=== PATIENT | male | born 1955 | race Caucasian/White ===

== ENCOUNTER 2017-02-07 07:17 | Emergency (ER) | payer OTHER, MEDICAID ==
[~2017-02-07] VITALS: Ht 180.3 cm; Wt 108.9 kg
[~2017-02-07 07:17] MED LIST: ASPI81CH43 PO; INSLANTI; LISI2.5T47 PO; MET25T PO; METF-370
[2017-02-07 09:08] LABS: Basophils # (auto) 0.1 uL; Basophils % (auto) 1.3 % (0.0-2.0); Eosinophils # (auto) 0.1 uL; Eosinophils % (auto) 1.2 % (0.0-7.0); Hematocrit 36.9 % (41.0-53.0); Lymphocytes # (auto) 2.6 uL; Lymphocytes % (auto) 35.6 % (10.0-50.0); Mean Corpuscular Hemoglobin 30.1 pg (28.0-32.0); Mean Corpuscular Hgb Conc. 35.3 g/dL (32.0-36.0); Mean Corpuscular Volume 85.4 fL (80.0-100.0); Mean Platelet Volume 7.6 fL (6.9-10.8); Monocytes # (auto) 0.9 uL; Monocytes % (auto) 12.2 % (0.0-12.0); Neutrophils # (auto) 3.6 uL; Neutrophils % (auto) 49.7 % (37.0-80.0); Nucleated Red Blood Cells % 0.1 %; Platelet Count (auto) 202 10^3/uL (140-450); Red Cell Distribution Width 12.9 % (11.8-14.3); White Blood Cell 7.3 10^3/uL (4.4-10.8)
[2017-02-07 09:28] LABS: Albumin 3.4 g/dL (3.4-5.0); Bilirubin, Total 0.6 mg/dL (0.2-1.0); Calcium 8.1 mg/dL (8.5-10.1); Magnesium 1.9 mg/dL (1.6-2.6); Potassium 4.5 mmol/L (3.5-5.1); Total Protein 6.6 g/dL (6.4-8.2)
[2017-02-07 09:35] LABS: Urine Bilirubin Negative (Negative); Urine Blood Negative /uL (Negative); Urine Color Yellow (Yellow); Urine Glucose Normal (Normal); Urine Ketone Negative (Negative); Urine Nitrite Negative (Negative); Urine RBC <1 /hpf (0 - 3); Urine Squamous Epithelial Cell FEW /hpf (<5); Urine Urobilinogen Normal (Negative); Urine pH 5.5 (5.0-8.0)
[2017-02-07] MEDS: SODIUM CHLORIDE 0.9% 1,000 ML IVB ONE (09:36)
[2017-02-07] MEDS: KETOROLAC TROMETH 30 MG/ML 1ML VIAL IV ONE (09:36)
[2017-02-07] MEDS: PROMETHAZINE HCL 25 MG/ML 1ML IV PRN (12:33)
[2017-02-07] MEDS: NALBUPHINE HCL 10 MG/1ml INJECTION IV ONE (12:33)
[2017-02-07] MEDS: NALBUPHINE HCL 10 MG/1ml INJECTION ONE (12:46)
[2017-02-07 12:49] VITALS: BP 166/67
[2017-02-07] MEDS: OSELTAMIVIR 75 MG CAP PO ONE (13:01)
[2017-02-07] MEDS: SODIUM CHLORIDE 0.9% 1,000 ML IV ONE (13:02)
== END 2017-02-07 15:43 | disposition home or self-care (01) ==
LOC: ER 07:17
DX: E86.0 Dehydration (principal); M35.3 Polymyalgia rheumatica; J10.1 Influenza due to other identified influenza virus with other respiratory manifestations; E87.1 Hypo-osmolality and hyponatremia; E11.9 Type 2 diabetes mellitus without complications; I10 Essential (primary) hypertension; G89.29 Other chronic pain
CPT/HCPCS: 36415; 71020; 74176; 80053; 81001; 82962; 83690; 83735; 84443; 84484; 85025; 87400; 93005; 94761; 96361; 96374; 96375; 99285; J1885; J2300; J2550; J7030

== ENCOUNTER 2019-07-31 11:41 | Inpatient (IN) | payer OTHER, MEDICAID ==
[~2019-07-31] VITALS: Ht 180.3 cm; Wt 108.3 kg
[~2019-07-31 11:41] MED LIST changes: -ASPI81CH43 PO; +CHOL20007 PO; +FURO40TA4 PO; -INSLANTI; +INSLANTI SC; +INSLISPI SC; +LISI-285 PO; -LISI2.5T47 PO; -MET25T PO; -METF-370
[2019-07-31] MEDS ORDERED: SODIUM CHLORIDE 0.9% 500 ML IV ONE (12:24)
[2019-07-31] MEDS ORDERED: ONDANSETRON HCL 4 MG/2 ML VIAL IV ONE (12:30)
[2019-07-31 13:17] LABS: Basophils # (auto) 0.1 10 ^3/uL (0-0.2); Basophils % (auto) 0.8 % (0.0-2.0); Eosinophils # (auto) 0.2 10 ^3/uL (0-0.8); Eosinophils % (auto) 1.7 % (0.0-7.0); Hematocrit 40.8 % (41.0-53.0); Hemoglobin 13.9 g/dL (13.5-17.5); Lymphocytes # (auto) 3.2 10 ^3/uL (0.4-5.4); Lymphocytes % (auto) 33.5 % (10.0-50.0); Mean Corpuscular Hemoglobin 30.6 pg (28.0-32.0); Mean Corpuscular Hgb Conc. 34.2 g/dL (32.0-36.0); Mean Corpuscular Volume 89.7 fL (80.0-100.0); Monocytes # (auto) 0.7 10 ^3/uL (0-1.3); Monocytes % (auto) 7.3 % (0.0-12.0); Neutrophils # (auto) 5.4 10 ^3/uL (1.6-8.6); Neutrophils % (auto) 56.7 % (37.0-80.0); Nucleated Red Blood Cells % 0.1 %; Platelet Count (auto) 255 10^3/uL (140-450); Red Blood Cells 4.55 10^6/uL (4.5-5.90); Red Cell Distribution Width 13.5 % (11.8-14.3); White Blood Cell 9.6 10^3/uL (4.4-10.8)
[2019-07-31 13:32] LABS: Albumin 3.8 g/dL (3.4-5.0); Potassium 4.4 mmol/L (3.5-5.1)
[2019-07-31 13:37] LABS: BUN/Creatinine Ratio 18.7; Bilirubin, Total 0.4 mg/dL (0.2-1.0); Total Protein 7.4 g/dL (6.4-8.2)
[2019-07-31] MEDS ORDERED: MORPHINE SULF INJ 2 MG/ML SYRINGE 1ML IV PRN (15:15)
[2019-07-31] MEDS ORDERED: NITROGLYCERIN 0.4 MG SL TAB SL PRN (15:15)
[2019-07-31] MEDS ORDERED: hydrALAZINE HCL 20 MG/ML VL IV PRN (15:15)
[2019-07-31] MEDS ORDERED: ACETAMINOPHEN 500 MG TAB PO PRN (15:15)
[2019-07-31] MEDS ORDERED: ONDANSETRON HCL 4 MG/2 ML VIAL IV PRN (15:15)
[2019-07-31] MEDS ORDERED: FUROSEMIDE 40 MG/4 ML VIAL IV SCH (15:15)
[2019-07-31] MEDS ORDERED: DEXTROSE (50%) 50ML SYRG IV PRN (15:15)
[2019-07-31] MEDS: HYDROcodone-ACET 5/325MG TAB PO PRN (16:01)
[2019-07-31] MEDS: NITROGLYCERIN 0.2MG/HR TOPICAL PATCH TD SCH (16:10)
[2019-07-31 16:56] LABS: Urine Bacteria NONE SEEN /hpf (None Seen); Urine Blood Negative /uL (Negative); Urine Specific Gravity 1.004 (1.001-1.035); Urine WBC <1 /hpf (0 - 3)
[2019-07-31] MEDS: InsuLIN REG 1unit/0.01ml Soln (100units/ml) SC SCH ×2 (17:00→21:50)
[2019-07-31] MEDS: ACCU-CHEK COMFORT CURVE STRIP VI SCH ×2 (17:28→21:36)
[2019-07-31] MEDS: MORPHINE SULF INJ 2 MG/ML SYRINGE 1ML IV PRN (19:56)
--- NOTE | 2019-07-31 20:09 | NUR ---
Telemetry admit from ER [facility] admitted to Telemetry unit. Patient is A&O X's 4 with no s/s of distress and reports some pain to right foot. Patient recently was just medicated with morphine to help this pain. Patient oriented to JUDE NAVARRO RN primary RN, unit, room, bed, and unit policies regarding patient care and visiting hours. Patient now on continuous telemetry monitoring, tele box #[id number] . Patient encouraged to call if they need something. Bed is in lowest/locked position with side rails up X's 2 and call light is within reach of patient. All questions and concerns addressed, patient verbalized understanding.
[2019-07-31] MEDS: METOPROLOL TARTRATE 25 MG TAB PO SCH (21:35)
[2019-07-31] MEDS: ATORVASTATIN 20 MG TAB PO SCH (21:36)
[2019-07-31 22:00] VITALS: BP 102/47
[2019-08-01 00:44] VITALS: BP 102/47
[2019-08-01] MEDS: HYDROcodone-ACET 5/325MG TAB PO PRN ×2 (03:36→17:41)
--- NOTE | 2019-08-01 04:36 | NUR ---
PAIN REASSESSMENT Patient not c/o any pain at this time. Will continue care.
[2019-08-01 05:00] VITALS: BP 107/66
[2019-08-01] MEDS: FUROSEMIDE 40 MG/4 ML VIAL IV SCH ×2 (06:10→18:50)
[2019-08-01] MEDS: ACCU-CHEK COMFORT CURVE STRIP VI SCH ×4 (06:14→21:50)
[2019-08-01] MEDS: InsuLIN REG 1unit/0.01ml Soln (100units/ml) SC SCH ×4 (06:14→21:46)
[2019-08-01 06:30] LABS: Basophils # (auto) 0.1 10 ^3/uL (0-0.2); Basophils % (auto) 0.9 % (0.0-2.0); Eosinophils # (auto) 0.2 10 ^3/uL (0-0.8); Eosinophils % (auto) 3.1 % (0.0-7.0); Hematocrit 37.1 % (41.0-53.0); Hemoglobin 12.8 g/dL (13.5-17.5); Lymphocytes # (auto) 2.4 10 ^3/uL (0.4-5.4); Lymphocytes % (auto) 34.6 % (10.0-50.0); Mean Corpuscular Hemoglobin 30.6 pg (28.0-32.0); Mean Corpuscular Hgb Conc. 34.4 g/dL (32.0-36.0); Monocytes # (auto) 0.7 10 ^3/uL (0-1.3); Monocytes % (auto) 9.6 % (0.0-12.0); Neutrophils # (auto) 3.6 10 ^3/uL (1.6-8.6); Neutrophils % (auto) 51.8 % (37.0-80.0); Nucleated Red Blood Cells % 0.3 %; Platelet Count (auto) 231 10^3/uL (140-450); Red Blood Cells 4.17 10^6/uL (4.5-5.90); Red Cell Distribution Width 13.2 % (11.8-14.3); White Blood Cell 6.9 10^3/uL (4.4-10.8)
[2019-08-01 06:38] LABS: INR 0.99 (0.9-1.15); Partial Thromboplastin Time 27.9 sec (23.64-32.05)
[2019-08-01 06:42] LABS: BUN/Creatinine Ratio 21.5; Calcium 8.6 mg/dL (8.5-10.1); Potassium 4.2 mmol/L (3.5-5.1)
--- NOTE | 2019-08-01 07:40 | NUR ---
Opening shift note Assumed care from NOC PAIGE reveles. Patient is alert and oriented x4 no s/s of distress noted. Bed is in lowest locked position, side rails up x2, call light within reach. Updated patient on plan of care and patient verbalized understanding. I will continue to monitor q1hr and PRN.
[2019-08-01 09:03] VITALS: BP 113/60
[2019-08-01] MEDS: FAMOTIDINE 20 MG TAB PO SCH (10:00)
[2019-08-01] MEDS: ASPirin-EC 81 mg tab PO SCH (10:52)
[2019-08-01] MEDS: LISINOPRIL 10 MG TAB PO SCH (10:52)
[2019-08-01] MEDS: METOPROLOL TARTRATE 25 MG TAB PO SCH ×2 (10:53→21:49)
[2019-08-01] MEDS: NITROGLYCERIN 0.2MG/HR TOPICAL PATCH TD SCH (10:55)
[2019-08-01] MEDS ORDERED: LISI-707 PO (12:03)
[2019-08-01] MEDS: MORPHINE SULF INJ 2 MG/ML SYRINGE 1ML IV PRN (12:03)
[2019-08-01] MEDS ORDERED: AMLO10TA13 PO (12:03)
[2019-08-01] MEDS ORDERED: ATOR20TA50 PO (12:03)
[2019-08-01] MEDS ORDERED: MET25T PO (12:03)
[2019-08-01 12:50] VITALS: BP 140/69
[2019-08-01 17:10] VITALS: BP 128/74
--- NOTE | 2019-08-01 18:10 | NUR ---
Physician rounding Dr. Rose Titus at bedside. Updated him on plan of care. New orders received, I will follow through.
--- NOTE | 2019-08-01 19:20 | NUR ---
Closing shift note Endorsed care to NOC PAIGE Salomon No s/s of distress noted.
--- NOTE | 2019-08-01 19:30 | NUR ---
OPENING NOTE Received report from day shift RN. Patient is A&O X's 4 with no s/s of distress and reports no pain at this time. Educated patient on POC and to use call light when in need of assistance. Patient verbalized understanding. Educated patient he will not be able to eat or drink anything after midnight in prep for the procedure. Bed is in lowest/locked position with side rails up X's 2 and call light is within reach of patient. Will continue care.
[2019-08-01] MEDS: ATORVASTATIN 20 MG TAB PO SCH (21:49)
[2019-08-01 22:00] VITALS: BP 134/71
--- NOTE | 2019-08-02 | NUR ---
PATIENT NPO Patient aware. fluids and food removed from bedside.
[2019-08-02] MEDS ORDERED: SODIUM CHLORIDE 0.9% 500 ML IV ONE (00:01)
[2019-08-02] MEDS: MORPHINE SULF INJ 2 MG/ML SYRINGE 1ML IV PRN (03:51)
--- NOTE | 2019-08-02 03:57 | NUR ---
CONSENTS NOT SIGNED Patient requesting to sign consents at a later time. Will endorse to day shift RN.
--- NOTE | 2019-08-02 04:21 | NUR ---
PAIN REASSESSMENT Patient is resting with eye closed. No s/s of discomfort is seen. Will continue care.
[2019-08-02 04:54] VITALS: BP 117/56
[2019-08-02 05:56] LABS: Basophils # (auto) 0.1 10 ^3/uL (0-0.2); Basophils % (auto) 0.7 % (0.0-2.0); Eosinophils # (auto) 0.3 10 ^3/uL (0-0.8); Hematocrit 38.4 % (41.0-53.0); Hemoglobin 13.2 g/dL (13.5-17.5); Lymphocytes # (auto) 2.8 10 ^3/uL (0.4-5.4); Lymphocytes % (auto) 33.2 % (10.0-50.0); Mean Corpuscular Hemoglobin 30.4 pg (28.0-32.0); Mean Corpuscular Hgb Conc. 34.4 g/dL (32.0-36.0); Mean Corpuscular Volume 88.4 fL (80.0-100.0); Monocytes # (auto) 0.6 10 ^3/uL (0-1.3); Monocytes % (auto) 7.5 % (0.0-12.0); Neutrophils # (auto) 4.7 10 ^3/uL (1.6-8.6); Neutrophils % (auto) 55.6 % (37.0-80.0); Platelet Count (auto) 240 10^3/uL (140-450); Red Blood Cells 4.34 10^6/uL (4.5-5.90); Red Cell Distribution Width 12.7 % (11.8-14.3); White Blood Cell 8.5 10^3/uL (4.4-10.8)
[2019-08-02 06:14] LABS: INR 0.99 (0.9-1.15)
[2019-08-02] MEDS: FUROSEMIDE 40 MG/4 ML VIAL IV SCH ×2 (06:18→18:00)
[2019-08-02] MEDS: InsuLIN REG 1unit/0.01ml Soln (100units/ml) SC SCH ×4 (06:18→22:44)
[2019-08-02] MEDS: ACCU-CHEK COMFORT CURVE STRIP VI SCH ×4 (06:18→22:07)
[2019-08-02 06:30] LABS: Potassium 3.9 mmol/L (3.5-5.1)
[2019-08-02 06:37] LABS: BUN/Creatinine Ratio 25.8; Calcium 8.9 mg/dL (8.5-10.1)
--- NOTE | 2019-08-02 07:35 | NUR ---
Opening shift note Assumed care of patient from [facility] PAIGE Salomon. Patient is AOx4 no signs and symptoms of distress noted. Bed is in lowest locked position, side rails up x2, call light is within reach. Updated patient on plan of care, patient verbalized that he would like to speak to ROB Coughlin regarding a scheduled procedure today. Patient stated "i want what is wrong with my stomach to be addressed before any procedure." Patient is not agreeing to sign consents. Educated patient about the risk of refusing. Patient verbalized understanding. I will continue to monitor Q1hr and PRN.
--- NOTE | 2019-08-02 08:37 | NUR ---
Paged cardiology Paged BRIDAL GOWN FITTER Felipa Coughlin. Awaiting call back.
[2019-08-02 08:55] VITALS: BP 129/60
[2019-08-02] MEDS: FAMOTIDINE 20 MG TAB PO SCH (10:00)
[2019-08-02] MEDS: HYDROcodone-ACET 5/325MG TAB PO PRN ×2 (10:21→21:56)
[2019-08-02] MEDS: ASPirin-EC 81 mg tab PO SCH (10:21)
[2019-08-02] MEDS: LISINOPRIL 10 MG TAB PO SCH (10:22)
[2019-08-02] MEDS: METOPROLOL TARTRATE 25 MG TAB PO SCH ×2 (10:22→21:56)
[2019-08-02] MEDS: NITROGLYCERIN 0.2MG/HR TOPICAL PATCH TD SCH (10:24)
[2019-08-02 12:58] VITALS: BP 127/59
--- NOTE | 2019-08-02 14:45 | NUR ---
spoke with family Spoke with patients daughter and updated her on plan of care. She verbalized understanding.
--- NOTE | 2019-08-02 15:05 | NUR ---
called medical laboratory technologist Called medical laboratory technologist to inform that patient is verbalizing that he will sign consents to have the procedure done today. Per medical laboratory technologist nurse patient can be brought down now.
--- NOTE | 2019-08-02 15:25 | NUR ---
Patient off unit Patient off unit for procedure.
--- NOTE | 2019-08-02 16:15 | NUR ---
called family Updated patients daughter Veronica about patient being taken down to a procedure. She verbalized understanding.
--- NOTE | 2019-08-02 18:00 | NUR ---
PT transferred to tele floor via bed, portable monitor, and O2. primary RN at bedside. bed in lowest position, call light in reach
--- NOTE | 2019-08-02 18:10 | NUR ---
patient back on unit patient back on unit, no signs and symptoms of distress noted. vitas are 98.1, 18 respiration rate, 97% oxygen on room air, 71bpm, 109/60
--- NOTE | 2019-08-02 18:10 | NUR ---
received report from grass farm laborer Received report from grass farm laborer nurse. Patient did not have procedure done today and will have it done tomorrow morning. patient is aware. Addendum: 08/02/19 at 1814 by LAMIN HEWITT RN correct time is 9677
--- NOTE | 2019-08-02 18:20 | NUR ---
Patient requesting laxative Patient stated "I cant eat until I can take something to help me have a bowel movement." Informed patient that there are currently no orders for a laxative and the attending physician will be notified. Patient verbalized understanding.
--- NOTE | 2019-08-02 18:30 | NUR ---
Called physician Called Dr. Jennifer Ferreira, left a voice message regarding patient status. Awaiting call back.
--- NOTE | 2019-08-02 19:20 | NUR ---
End of shift note Endorsed care to NOC PAIGE Hernadez. No s/s of distress noted.
--- NOTE | 2019-08-02 20:00 | NUR ---
Opening note Patient resting in bed with even and unlabored respirations, no distress noted. Instructed patient on POC, fall precautions and to call for assistance as needed. patient verbalized understanding. Fall precautions in place with call light within reach.
[2019-08-02] MEDS ORDERED: LACTULOSE 20Gm/30ML SOLN PO ONE (21:00)
--- NOTE | 2019-08-02 21:00 | NUR ---
Notified RE: assessment Notified Dr. Rose Ferreira of CP & GI assessment. MD verbalized understanding. MD to place orders.
[2019-08-02] MEDS: ATORVASTATIN 20 MG TAB PO SCH (21:55)
[2019-08-02 22:00] VITALS: BP 123/59
--- NOTE | 2019-08-02 23:10 | NUR ---
Patient resting in bed with eyes closed; respirations even and unlabored, no distress noted. Fall precautions in place with call light within reach.
[2019-08-03] VITALS (8 sets, daily range): BP systolic 99–140; BP diastolic 49–70
--- NOTE | 2019-08-03 03:28 | NUR ---
Patient resting in bed with eyes closed; respirations even and unlabored, no distress noted. Fall precautions in place with call light within reach.
[2019-08-03] MEDS: FUROSEMIDE 40 MG/4 ML VIAL IV SCH (05:54)
[2019-08-03] MEDS: ACCU-CHEK COMFORT CURVE STRIP VI SCH ×4 (06:05→22:37)
[2019-08-03] MEDS: InsuLIN REG 1unit/0.01ml Soln (100units/ml) SC SCH ×4 (06:09→22:42)
--- NOTE | 2019-08-03 06:15 | NUR ---
Closing note Patient resting in bed with eyes closed; respirations even and unlabored, no distress noted. Fall precautions in place with call light within reach.
--- NOTE | 2019-08-03 07:30 | NUR ---
Care endorsed to PAIGE Bagley. Patient resting in bed with even and unlabored respirations, no distress noted. Fall precautions in place with call light within reach.
--- NOTE | 2019-08-03 07:30 | NUR ---
Opening Shift Note Assumed care of patient, awake and alert. No S/S of distress/SOB or pain. Bed in lowest locked position, call light within reach, side rails up x 2. Instructed on POC and to call for assist PRN, will continue to monitor for changes Q1hr and PRN.
[2019-08-03] MEDS: FAMOTIDINE 20 MG TAB PO SCH (10:00)
[2019-08-03] MEDS ORDERED: LACTULOSE 20Gm/30ML SOLN PO SCH (10:00)
[2019-08-03] MEDS: METOPROLOL TARTRATE 25 MG TAB PO SCH ×2 (10:00→22:00)
[2019-08-03] MEDS: NITROGLYCERIN 0.2MG/HR TOPICAL PATCH TD SCH (10:07)
[2019-08-03] MEDS: LISINOPRIL 10 MG TAB PO SCH (10:08)
[2019-08-03] MEDS: ASPirin-EC 81 mg tab PO SCH (10:08)
[2019-08-03] MEDS ORDERED: LACTULOSE 20Gm/30ML SOLN PO PRN (10:45)
--- NOTE | 2019-08-03 11:06 | NUR ---
OFF UNIT TO WATER MANAGER
--- NOTE | 2019-08-03 11:33 | NUR ---
Est energy needs 3222-0744 kcal (16-18 kcal/kg BW 103.1kg) Est protein needs 78-86g (1-1.1g/kg IBW 78 kg) Will reassess prn. Addendum: 08/03/19 at [address] Amended: Links added.
[2019-08-03] MEDS ORDERED: HEPARIN SODIUM (PORCINE) 5000 UNITS/ML 1ML VIAL ONE (12:04)
[2019-08-03] MEDS ORDERED: VERAPAMIL 2.5MG/ML INJ 2ML VIAL IV ONE (12:04)
[2019-08-03] MEDS ORDERED: MIDAZOLAM HCL 1MG/1ML-2 ML VIAL ONE ×2 (12:05→14:10)
[2019-08-03] MEDS ORDERED: fentaNYL CITRATE 100 MCG/2 ML VL ONE ×2 (12:05→14:10)
[2019-08-03] MEDS ORDERED: LIDOCAINE 2%HCL (LOCAL ANESTH.) INJ 20ML MDV ONE (12:05)
[2019-08-03] MEDS ORDERED: IOHEXOL 350 MG/ML 100ML IJ ONE ×3 (12:05→13:52)
[2019-08-03] MEDS ORDERED: SODIUM CHL 0.9% 50 ML ONE ×2 (12:07→13:45)
[2019-08-03] MEDS ORDERED: ANGIOMAX 250 MG VIAL IV ONE ×2 (12:07→13:45)
[2019-08-03] MEDS ORDERED: TICAGRELOR 90 MG TAB ONE (14:08)
[2019-08-03] MEDS ORDERED: ASPirin 325 MG TAB ONE (14:08)
[2019-08-03] MEDS ORDERED: TICA90TA PO (15:32)
[2019-08-03] MEDS ORDERED: MET25T PO (15:32)
[2019-08-03] MEDS ORDERED: ASPI-394 PO (15:32)
[2019-08-03] MEDS ORDERED: ATOR20TA50 PO (15:32)
[2019-08-03] MEDS ORDERED: LISI-648 PO (15:32)
--- NOTE | 2019-08-03 15:51 | NUR ---
PATIENT ARRIVED FROM [facility]. RIGHT GROIN DRESSING CDI AND SOFT TO TOUCH AROUND THE SITE AND COLOR WITHIN NORMAL LIMITS. PATIENTS VITALS ARE STABLE AND PATIENT IS ALERT AND ORIENTED X4 AND PLACED ON 2L OF OXYGEN VIA N/C. NO S/S OF DISTRESS OR SOB AT THIS TIME AND PATIENT DENIES HAVING ANY CHEST PAIN AT THIS TIME. BED IN LOWEST AND LOCKED POSITION WITH SIDE RAILS UP X2 AND CALL LIGHT IN REACH. WILL CONTINUE TO MONITOR.
--- NOTE | 2019-08-03 16:00 | NUR ---
SPOKE TO DR. Rose TINOCO. RN UPDATED DR. TINOCO ON THE PATIENTS STATUS AND PROCEDURE RESULTS. MD AWARE AND PER DR. TINOCO, PATIENT WILL STAY TONIGHT AND THE DISCHARGE WILL BE TOMORROW 08/04/2019.
[2019-08-03] MEDS: HYDROcodone-ACET 5/325MG TAB PO PRN (17:39)
--- NOTE | 2019-08-03 17:40 | NUR ---
PT STATED THAT HE HAS PAIN. PATIENT RATED PAIN AT 8/10. PATIENT STATED, "THE AVRILCO IS FINE FOR NOW". RN EDUCATED PATIENT ON PAIN MANAGEMENT AND THE RISKS AND BENEFITS OF PAIN MEDICATIONS. PATIENT VERBALIZED UNDERSTANDING.
--- NOTE | 2019-08-03 19:20 | NUR ---
Opening Shift Note Assumed care of patient. Patient is awake and alert. No S/S of distress/SOB or pain. Instructed on POC and to call for assist PRN, will continue to monitor for changes Q1hr and PRN. Bed locked in lowest position and bed rails up x3. Call light within reach. Right groin dressing clean, dry and intact.
[2019-08-03] MEDS: ATORVASTATIN 20 MG TAB PO SCH (22:36)
[2019-08-03] MEDS: TICAGRELOR 90 MG TAB PO SCH (22:36)
[2019-08-04] VITALS (7 sets, daily range): BP systolic 100–164; BP diastolic 51–92
[2019-08-04] MEDS: ACCU-CHEK COMFORT CURVE STRIP VI SCH ×4 (06:27→22:15)
[2019-08-04] MEDS: InsuLIN REG 1unit/0.01ml Soln (100units/ml) SC SCH ×4 (06:27→22:17)
[2019-08-04] MEDS: FUROSEMIDE 40 MG/4 ML VIAL IV SCH (09:37)
[2019-08-04] MEDS: POTASSIUM CHL 10 Meq TABLET PO SCH (09:38)
[2019-08-04] MEDS: ASPirin-EC 81 mg tab PO SCH (09:39)
[2019-08-04] MEDS: TICAGRELOR 90 MG TAB PO SCH ×2 (09:39→23:11)
[2019-08-04] MEDS: LISINOPRIL 10 MG TAB PO SCH (09:40)
[2019-08-04] MEDS: METOPROLOL TARTRATE 25 MG TAB PO SCH ×2 (09:40→22:17)
[2019-08-04] MEDS: FAMOTIDINE 20 MG TAB PO SCH (09:40)
[2019-08-04] MEDS: NITROGLYCERIN 0.2MG/HR TOPICAL PATCH TD SCH (10:00)
[2019-08-04] MEDS ORDERED: SODIUM CHLORIDE 0.9% 500 ML IV ONE (12:00)
[2019-08-04] MEDS ORDERED: FUROSEMIDE 20 MG TAB PO ONE ×2 (12:00→22:00)
--- NOTE | 2019-08-04 13:37 | NUR ---
NOTIFIED ROB CONRAD ON PATIENTS PEAKED T-WAVE ON THE TELEMETRY READING. ROB CONRAD AWARE AND NO NEW ORDERS RECEIVED AT THIS TIME. ACCORDING TO ROB CONRAD PATIENT IS OKAY TO BE DISCHARGED.
--- NOTE | 2019-08-04 14:00 | NUR ---
SPOKE TO DR. ANN NEW ORDERS RECEIVED, READ BACK AND VERIFIED. PER DR. ANN PATIENT CAN BE DISCHARGED AFTER HE HAS A BM.
[2019-08-04] MEDS ORDERED: GOLYTELY 4L KIT PO ONE (14:15)
[2019-08-04] MEDS ORDERED: SODIUM CHLORIDE 0.9% 1,000 ML IV SCH (15:15)
--- NOTE | 2019-08-04 15:15 | NUR ---
SPOKE TO DR. Rose TINOCO. NEW ORDERS RECEIVED, READ BACK AND VERIFIED.
--- NOTE | 2019-08-04 18:24 | NUR ---
PATIENT STATED HE HAS A SMALL BOWEL MOVEMENT.
--- NOTE | 2019-08-04 18:25 | NUR ---
Opening Shift Note Assumed care of patient, awake and alert. No S/S of distress/SOB or pain. Bed in lowest locked position, call light within reach, side rails up x 2. Instructed on POC and to call for assist PRN, will continue to monitor for changes Q1hr and PRN. Addendum: 08/04/19 at 1826 by MARIELLE ARMSTRONG RN RN INCORRECT TIME CORRECT TIME 0730
--- NOTE | 2019-08-04 19:10 | NUR ---
SPOKE TO DR. Jennifer TINOCO. RN UPDATED DR. TINOCO ON PATIENT STATUS AND LABS. MD AWARE AND NEW ORDERS RECEIVED READ BACK AND VERIFIED. SEE EMR FOR ORDERS.
--- NOTE | 2019-08-04 19:16 | NUR ---
Opening Shift Note Assumed care of patient. Patient is awake, alert, and oriented X 4. No S/S of respiratory distress. Respirations are regular and non-labored. Patient complaints on pain 6 0f 10. Pain will be addressed per Dr's order. Bed in lowest position, brakes locked, call light within reach, bed rail up x 2. POC discussed with the patient. Patient instructed to call for assistance PRN. Will continue to monitor for changes Q1hr and PRN.
[2019-08-04] MEDS: HYDROcodone-ACET 5/325MG TAB PO PRN (20:17)
[2019-08-04] MEDS: SODIUM CHLORIDE 0.9% 1,000 ML IV SCH (21:25)
[2019-08-04] MEDS: ATORVASTATIN 20 MG TAB PO SCH (22:16)
[2019-08-05] MEDS: SODIUM CHLORIDE 0.9% 1,000 ML IV SCH (03:58)
[2019-08-05 05:00] VITALS: BP 154/49
[2019-08-05] MEDS: ACCU-CHEK COMFORT CURVE STRIP VI SCH ×4 (06:38→22:05)
[2019-08-05] MEDS: InsuLIN REG 1unit/0.01ml Soln (100units/ml) SC SCH ×4 (06:42→22:16)
--- NOTE | 2019-08-05 07:30 | NUR ---
Opening Shift Note Assumed care of patient, awake and alert. No S/S of distress/SOB or pain. Bed in lowest and locked position with side rails up x2 and call light in reach. Instructed on POC and to call for assist PRN, will continue to monitor for changes Q1hr and PRN.
[2019-08-05] MEDS: HYDROcodone-ACET 5/325MG TAB PO PRN ×2 (08:36→20:44)
[2019-08-05 08:54] VITALS: BP 150/71
--- NOTE | 2019-08-05 09:15 | NUR ---
PATIENT STATED THAT HE FEEL SOB AND PAIN IN THE BACK AND LEG. PATIENT STATED "I THINK ITS NEUROLOGICAL". RN INITIATED EKG AND PLACE PATIENT ON 2L OF OXYGEN VIA NC. RN TO NOTIFY .
--- NOTE | 2019-08-05 09:50 | NUR ---
NOTIFIED ROB CONRAD ON THE PATIENT COMPLAINT OF SOB AND EKG INITIATED AND PLACED IN CHART. ROB CONRAD AWARE AND NO NEW ORDERS RECEIVED AT THIS TIME.
[2019-08-05] MEDS: NITROGLYCERIN 0.2MG/HR TOPICAL PATCH TD SCH (10:00)
[2019-08-05] MEDS: FAMOTIDINE 20 MG TAB PO SCH (10:37)
[2019-08-05] MEDS: FUROSEMIDE 40 MG/4 ML VIAL IV SCH (10:37)
[2019-08-05] MEDS: LISINOPRIL 10 MG TAB PO SCH (10:37)
[2019-08-05] MEDS: ASPirin-EC 81 mg tab PO SCH (10:38)
[2019-08-05] MEDS: METOPROLOL TARTRATE 25 MG TAB PO SCH ×2 (10:38→22:07)
[2019-08-05] MEDS: TICAGRELOR 90 MG TAB PO SCH ×2 (10:38→22:06)
[2019-08-05] MEDS: POTASSIUM CHL 10 Meq TABLET PO SCH (10:38)
[2019-08-05 12:45] VITALS: BP 150/64
[2019-08-05 13:07] LABS: Calcium 7.4 mg/dL (8.5-10.1); Potassium 4.3 mmol/L (3.5-5.1)
--- NOTE | 2019-08-05 16:30 | NUR ---
SPOKE TO VEE WITH CASE MANAGEMENT. PER VEE, [facility] HAS REQUESTED PATIENT INFORMATION. RN TO FAX INFORMATION TO [facility], FAX # [phone] AND PHONE NUMBER IS [phone].
[2019-08-05 16:50] VITALS: BP 151/78
[2019-08-05] MEDS ORDERED: POLY33504 PO (16:50)
[2019-08-05] MEDS ORDERED: DOCU-94 PO (16:50)
--- NOTE | 2019-08-05 17:15 | NUR ---
ATTEMPT TO FAX INFORMATION TO [facility]. FAX FAILED MULTIPLE TIMES. RN CALLED [facility] AND SPOKE TO WOJCEICH REGARDING THE INFORMATION. WOJCIECH GAVE A SECONDARY FAX NUMBER. THIS FAX NUMBER ALSO DID NOT COMPLETE THE FAX. ACCORDING TO WOJCIECH THE PATIENT HAS BEEN ACCEPTED TO [facility]. WILL ATTEMPT TO FAX AT A LATER TIME.
--- NOTE | 2019-08-05 18:35 | NUR ---
PAGED DR. TINOCO REGARDING DISCHARGE AND THE HOME HEALTH. AWAITING CALL BACK.
--- NOTE | 2019-08-05 18:39 | NUR ---
ATTEMPT TO FAX THE PATIENT INFORMATION REQUESTED TO THE [facility]. FAX NUMBERS ATTEMPTED ARE [phone] AND [phone].
--- NOTE | 2019-08-05 19:00 | NUR ---
SPOKE TO DR. Bryant TINOCO. PER DR. TINOCO, THE PATIENT IS NOT TO BE DISCHARGED TONIGHT.
[2019-08-05 20:00] VITALS: BP 154/73
[2019-08-05 22:00] VITALS: BP 154/73
[2019-08-05] MEDS: ATORVASTATIN 20 MG TAB PO SCH (22:07)
[2019-08-06 05:00] VITALS: BP 140/84
[2019-08-06] MEDS: METOPROLOL TARTRATE 25 MG TAB PO SCH ×2 (06:38→09:46)
[2019-08-06] MEDS: ACCU-CHEK COMFORT CURVE STRIP VI SCH ×2 (06:39→12:39)
[2019-08-06] MEDS: InsuLIN REG 1unit/0.01ml Soln (100units/ml) SC SCH ×2 (06:43→12:39)
[2019-08-06 07:08] LABS: BUN/Creatinine Ratio 17.3; Calcium 8.1 mg/dL (8.5-10.1); Potassium 3.9 mmol/L (3.5-5.1)
[2019-08-06 09:00] VITALS: BP 146/72
--- NOTE | 2019-08-06 09:30 | NUR ---
SPOKE TO DR. Bryant TINOCO. RN UPDATED DR. Bryant TINOCO ON THE PATIENTS CONDITION. PER DR. Bryant TINOCO THE PATIENT CAN BE DISCHARGED AFTER DR. ANGUIANO CLEARS THE PATIENT. PER DR. Bryant TINOCO, THE HOME HEALTH IS SET UP AND THE PATIENT IS TO BE DISCHARGED REGARDLESS OF THE PAPERWORK UNABLE TO BE FAXED TO [facility].
[2019-08-06] MEDS: POTASSIUM CHL 10 Meq TABLET PO SCH (09:46)
[2019-08-06] MEDS: FUROSEMIDE 40 MG/4 ML VIAL IV SCH (09:46)
[2019-08-06] MEDS: FAMOTIDINE 20 MG TAB PO SCH (09:46)
[2019-08-06] MEDS: ASPirin-EC 81 mg tab PO SCH (09:46)
[2019-08-06] MEDS: LISINOPRIL 10 MG TAB PO SCH (09:47)
[2019-08-06] MEDS: TICAGRELOR 90 MG TAB PO SCH (09:47)
[2019-08-06] MEDS: NITROGLYCERIN 0.2MG/HR TOPICAL PATCH TD SCH (10:00)
--- NOTE | 2019-08-06 10:47 | NUR ---
PAGED DR. ANGUIANO. AWAITING CALL BACK.
--- NOTE | 2019-08-06 10:55 | NUR ---
SPOKE TO DR. ANGUIANO. ACCORDING TO DR. ANGUIANO THE PATIENT IS CLEAR FOR DISCHARGE.
[2019-08-06 11:04] VITALS: BP 146/72
--- NOTE | 2019-08-06 11:26 | NUR ---
SPOKE TO VEE WITH CASE MANAGEMENT AND NOTIFIED VEE THAT THE FAX IS UNABLE TO PROCESS FOR THE PATIENT INFORMATION TO SEND TO [facility]. PER VEE, SHE WILL TRY AGAIN ON WEDNESDAY MORNING AFTER THE PATIENT IS DISCHARGED.
--- NOTE | 2019-08-06 13:20 | NUR ---
Discharge instructions given as ordered. Encourage to follow up with PMD as instructed. All questions and concerns addressed. Patient verbalized understanding. Medication reconciliation form completed and copy given to patient. No Home medications held in Pharmacy. Patient refused vaccines. IV removed with catheter intact, pressure dressing applied. Telemetry unit returned to ICU. Patient taken to vehicle via wheelchair with all personal belongings, accompanied by staff and family member. No distress noted at time of departure.
--- NOTE | 2019-08-07 09:27 | NUR ---
Weekend metal bonding crib attendant-I received a page from nurse Bagley 08/05/19 [id number] letting me know that patient is to discharge home and needs home health safety eval. I called [facility] and spoke with Marshmallow Machine Worker Mahi, she said to fax it to [facility]. I asked nurse Bagley to fax to [facility], provided her with phone number to give to patient. Per Mahi [facility] will see patient within 24-48 hours.
== END 2019-08-06 13:20 | disposition home health service (06) | DRG 246 ==
LOC: ER 11:41 → TELE 11:42 → TELE-WESTW 20:09
PROVIDERS: ADMIT Nurse Practitioner Acute Care; ATTEND Internal Medicine
PROC: 027337Z Dilation of Coronary Artery, Four or More Arteries with Four or More Drug-eluting Intraluminal Devices, Percutaneous Approach (ICD-10-PCS; principal; 2019-08-03)
PROC: X2C0361 Extirpation of Matter from Coronary Artery, One Artery using Orbital Atherectomy Technology, Percutaneous Approach, New Technology Group 1 (ICD-10-PCS; 2019-08-03)
DX: I25.10 Atherosclerotic heart disease of native coronary artery without angina pectoris (principal); N17.0 Acute kidney failure with tubular necrosis; I13.0 Hypertensive heart and chronic kidney disease with heart failure and stage 1 through stage 4 chronic kidney disease, or unspecified chronic kidney disease; I50.32 Chronic diastolic (congestive) heart failure; K59.00 Constipation, unspecified; K80.20 Calculus of gallbladder without cholecystitis without obstruction; R10.9 Unspecified abdominal pain; N18.3 Chronic kidney disease, stage 3 (moderate); I73.9 Peripheral vascular disease, unspecified; E11.22 Type 2 diabetes mellitus with diabetic chronic kidney disease; E78.5 Hyperlipidemia, unspecified; G40.909 Epilepsy, unspecified, not intractable, without status epilepticus; E11.51 Type 2 diabetes mellitus with diabetic peripheral angiopathy without gangrene; E66.01 Morbid (severe) obesity due to excess calories; G89.29 Other chronic pain; I44.0 Atrioventricular block, first degree; K44.9 Diaphragmatic hernia without obstruction or gangrene; N14.1 Nephropathy induced by other drugs, medicaments and biological substances; T50.8X5A Adverse effect of diagnostic agents, initial encounter; E78.00 Pure hypercholesterolemia, unspecified; Z79.899 Other long term (current) drug therapy; Z79.4 Long term (current) use of insulin; Z68.31 Body mass index [BMI] 31.0-31.9, adult; Z82.49 Family history of ischemic heart disease and other diseases of the circulatory system; Z83.3 Family history of diabetes mellitus; Z82.5 Family history of asthma and other chronic lower respiratory diseases
CPT/HCPCS: 92928; 99285; C9600; C9601; 36415; 71045; 74176; 80048; 80053; 81001; 82565; 82962; 83036; 83690; 83880; 84484; 84520; 85025; 85610; 85730; 86141; 86850; 86900; 86901; 93005; 93925; 93971; 99152; 99153; C1724; C1769; C1874; C1887; G0378; J1815; J2250

== ENCOUNTER 2020-04-18 09:45 | Inpatient (IN) | payer OTHER, MEDICAID ==
[2020-04-18] VITALS (11 sets, daily range): BP systolic 110–148; BP diastolic 39–81
[~2020-04-18] VITALS: Ht 180.3 cm; Wt 89.0 kg
[~2020-04-18 09:45] MED LIST changes: +AMLO-496 PO; +ASPI-394 PO; +ATOR20TA50 PO; +DOCU-94 PO; -LISI-285 PO; +LISI-648 PO; +MET25T PO; +POLY33504 PO; +TICA90TA PO
[2020-04-18 10:39] LABS: Basophils # (auto) 0 10 ^3/uL (0-0.2); Basophils % (auto) 0.7 % (0.0-2.0); Eosinophils # (auto) 0.2 10 ^3/uL (0-0.8); Eosinophils % (auto) 3.1 % (0.0-7.0); Hematocrit 29.4 % (41.0-53.0); Hemoglobin 10.2 g/dL (13.5-17.5); Mean Corpuscular Hemoglobin 28.7 pg (28.0-32.0); Mean Corpuscular Hgb Conc. 34.7 g/dL (32.0-36.0); Mean Corpuscular Volume 82.8 fL (80.0-100.0); Monocytes # (auto) 0.7 10 ^3/uL (0-1.3); Neutrophils # (auto) 3.8 10 ^3/uL (1.6-8.6); Neutrophils % (auto) 56.2 % (37.0-80.0); Nucleated Red Blood Cells % 0.1 %; Platelet Count (auto) 304 10^3/uL (140-450); Red Blood Cells 3.55 10^6/uL (4.5-5.90); Red Cell Distribution Width 14.6 % (11.8-14.3); White Blood Cell 6.8 10^3/uL (4.4-10.8)
[2020-04-18 10:54] LABS: Albumin 3.5 g/dL (3.4-5.0); Anion Gap 8 (5-15); Blood Urea Nitrogen 24 mg/dL (7-18); Carbon Dioxide 23 mmol/L (21-32); Chloride 83 mmol/L (98-107); Glucose 142 mg/dL (74-106); Potassium 4.6 mmol/L (3.5-5.1)
[2020-04-18 11:01] LABS: Alanine Aminotransferase 25 U/L (16-61); Alkaline Phosphatase 124 U/L (45-117); Aspartate Aminotransferase 25 U/L (15-37); BUN/Creatinine Ratio 20.5; Bilirubin, Total 0.4 mg/dL (0.2-1.0); GFR African American 80 mL/min; GFR Non-African American 66 mL/min; Total Protein 6.8 g/dL (6.4-8.2)
[2020-04-18 11:07] LABS: Sodium 114 mmol/L (136-145)
[2020-04-18 11:09] LABS: Urine Bacteria NONE SEEN /hpf (None Seen); Urine Blood Negative /uL (Negative); Urine Specific Gravity 1.006 (1.001-1.035); Urine WBC <1 /hpf (0 - 3)
[2020-04-18] MEDS ORDERED: SODIUM CHL 3% 500 ML IV ONE ×2 (11:15→12:00)
[2020-04-18 11:16] LABS: INR 0.98 (0.9-1.15); Partial Thromboplastin Time 32.4 sec (23.0-31.2)
[2020-04-18] MEDS ORDERED: cefTRIAXone 1GM/50ML D5W 50 ML IV ONE (12:15)
[2020-04-18] MEDS ORDERED: CLINDAMYCIN 600MG IV 50 ML IV ONE (12:15)
[2020-04-18] MEDS ORDERED: NITROGLYCERIN 0.4 MG SL TAB SL PRN (13:00)
[2020-04-18] MEDS ORDERED: VANCOMYCIN 1GM/250ML 250 ML IV ONE (13:00)
[2020-04-18] MEDS ORDERED: MORPHINE SULF INJ 2 MG/ML SYRINGE 1ML IV PRN ×2 (13:00→13:45)
[2020-04-18] MEDS ORDERED: VANCOMYCIN PER PHARMACY 0 MG IV SCH (13:00)
[2020-04-18] MEDS ORDERED: DEXTROSE (50%) 50ML SYRG IV PRN (13:45)
[2020-04-18] MEDS ORDERED: LORazepam 0.5 MG TAB PO PRN (13:45)
[2020-04-18] MEDS ORDERED: traMADol HCL 50 MG TAB PO PRN (13:45)
[2020-04-18] MEDS ORDERED: PROMETHAZINE HCL 25 MG/ML 1ML IV PRN (13:45)
[2020-04-18] MEDS ORDERED: levoFLOXacin 500MG 100 ML IV ONE (13:45)
[2020-04-18] MEDS ORDERED: LORazepam 2MG/ML-1ML VIAL IV PRN (13:45)
[2020-04-18] MEDS ORDERED: ACETAMINOPHEN 500 MG TAB PO PRN (13:45)
[2020-04-18] MEDS ORDERED: LACTULOSE 20Gm/30ML SOLN PO PRN (13:45)
[2020-04-18 15:02] LABS: Calcium 7.8 mg/dL (8.5-10.1); Potassium 3.8 mmol/L (3.5-5.1)
[2020-04-18 15:03] LABS: Amphetamine Screen, Urine NEGATIVE (NEGATIVE); Barbiturate Scree,Urine NEGATIVE (NEGATIVE); Benzodiazephine Screen, Urine NEGATIVE (NEGATIVE); Cannabinoid Screen, Urine NEGATIVE (NEGATIVE); Cocaine Screen, Urine NEGATIVE (NEGATIVE); Opiate Scree,Urine NEGATIVE (NEGATIVE); Phencyclidine Screen, Urine NEGATIVE (NEGATIVE)
[2020-04-18] MEDS ORDERED: ACET-1156 PO (15:26)
[2020-04-18] MEDS ORDERED: TRIATAB3 PO (15:26)
[2020-04-18] MEDS ORDERED: CLOP75TA70 PO (15:26)
[2020-04-18] MEDS ORDERED: DILT60TA PO (15:26)
[2020-04-18] MEDS ORDERED: POLYETHYLENE GLYCOL 17 GM PWDR PO PRN (15:30)
[2020-04-18] MEDS: ACCU-CHEK COMFORT CURVE STRIP VI SCH ×2 (17:10→21:50)
[2020-04-18] MEDS: InsuLIN REG 1unit/0.01ml Soln (100units/ml) SC SCH ×2 (17:10→21:56)
[2020-04-18] MEDS ORDERED: INSULIN LANTUS (GLARGINE) 1 /0.01ml (100units/ml) SC SCH (18:00)
[2020-04-18] MEDS: DOCUSATE SOD 100 MG CAP PO SCH (21:48)
[2020-04-18] MEDS: TICAGRELOR 90 MG TAB PO SCH (21:48)
[2020-04-18] MEDS: ATORVASTATIN 20 MG TAB PO SCH (21:49)
[2020-04-18] MEDS ORDERED: ATORVASTATIN 20 MG TAB PO SCH (22:00)
[2020-04-18] MEDS: HYDROcodone-ACET 5/325MG TAB PO PRN (22:34)
[2020-04-19] VITALS (19 sets, daily range): BP systolic 108–142; BP diastolic 31–94
[2020-04-19] MEDS: HYDROcodone-ACET 5/325MG TAB PO PRN (02:37)
[2020-04-19 04:40] LABS: Calcium 8.1 mg/dL (8.5-10.1); Potassium 4.2 mmol/L (3.5-5.1)
[2020-04-19 04:43] LABS: BUN/Creatinine Ratio 18.6
[2020-04-19] MEDS: SODIUM CHLORIDE 0.9% 1,000 ML IV SCH ×3 (05:02→12:50)
[2020-04-19] MEDS: ACCU-CHEK COMFORT CURVE STRIP VI SCH ×4 (06:38→19:51)
[2020-04-19] MEDS: InsuLIN REG 1unit/0.01ml Soln (100units/ml) SC SCH ×3 (06:44→19:51)
[2020-04-19] MEDS ORDERED: VANCOMYCIN 1GM/250ML 250 ML IV SCH (08:00)
[2020-04-19] MEDS: ENOXAPARIN SOD 40 MG/0.4 ML SYRINGE SC SCH (09:32)
[2020-04-19] MEDS: DOCUSATE SOD 100 MG CAP PO SCH ×2 (09:32→22:00)
[2020-04-19] MEDS: ASPirin 81 mg TAB PO SCH (09:34)
[2020-04-19] MEDS: FUROSEMIDE 40 MG TAB PO SCH (09:34)
[2020-04-19] MEDS: LISINOPRIL 10 MG TAB PO SCH (09:35)
[2020-04-19] MEDS: TICAGRELOR 90 MG TAB PO SCH ×2 (09:36→22:07)
[2020-04-19] MEDS ORDERED: ASPirin-EC 81 mg tab PO SCH (10:00)
[2020-04-19] MEDS ORDERED: amLODIPine BESYLATE 5 MG TAB PO SCH (10:00)
[2020-04-19] MEDS ORDERED: levoFLOXacin 500MG 100 ML IV SCH (10:00)
[2020-04-19] MEDS ORDERED: D5W 5% 1,000 ML IV SCH (10:45)
[2020-04-19] MEDS ORDERED: SENNA 8.6 MG TAB PO PRN (11:00)
[2020-04-19 11:44] LABS: Basophils # (auto) 0.1 10 ^3/uL (0-0.2); Basophils % (auto) 0.9 % (0.0-2.0); Eosinophils # (auto) 0.2 10 ^3/uL (0-0.8); Eosinophils % (auto) 3.9 % (0.0-7.0); Hematocrit 30.1 % (41.0-53.0); Hemoglobin 10.4 g/dL (13.5-17.5); Lymphocytes # (auto) 1.8 10 ^3/uL (0.4-5.4); Mean Corpuscular Hemoglobin 28.6 pg (28.0-32.0); Mean Corpuscular Hgb Conc. 34.6 g/dL (32.0-36.0); Mean Corpuscular Volume 82.6 fL (80.0-100.0); Monocytes # (auto) 0.7 10 ^3/uL (0-1.3); Monocytes % (auto) 11.8 % (0.0-12.0); Neutrophils # (auto) 3.1 10 ^3/uL (1.6-8.6); Neutrophils % (auto) 52.4 % (37.0-80.0); Nucleated Red Blood Cells % 0.1 %; Platelet Count (auto) 314 10^3/uL (140-450); Red Blood Cells 3.64 10^6/uL (4.5-5.90); Red Cell Distribution Width 14.4 % (11.8-14.3); White Blood Cell 5.9 10^3/uL (4.4-10.8)
[2020-04-19 12:03] LABS: BUN/Creatinine Ratio 15.5; Calcium 8.7 mg/dL (8.5-10.1); Potassium 5.2 mmol/L (3.5-5.1)
[2020-04-19] MEDS ORDERED: CLOP75TA70 PO (13:53)
[2020-04-19] MEDS ORDERED: DILT-15 PO (13:55)
[2020-04-19 13:59] LABS: BUN/Creatinine Ratio 16.5; Calcium 8.8 mg/dL (8.5-10.1); Potassium 4.4 mmol/L (3.5-5.1)
[2020-04-19] MEDS ORDERED: InsuLIN REG 1unit/0.01ml Soln (100units/ml) SC SCH (14:00)
[2020-04-19] MEDS ORDERED: DEXTROSE (50%) 50ML SYRG IV PRN (14:15)
[2020-04-19] MEDS: CLINDAMYCIN 600MG IV 50 ML IV SCH ×2 (14:22→22:07)
[2020-04-19 14:36] LABS: Protein, Urine 5.7 mg/dL (0.0-11.9)
[2020-04-19] MEDS ORDERED: LISI-646 PO (15:17)
[2020-04-19] MEDS ORDERED: INSULIN LANTUS (GLARGINE) 1 /0.01ml (100units/ml) SC SCH ×2 (18:00→22:00)
[2020-04-19 18:16] LABS: BUN/Creatinine Ratio 16.2; Calcium 8.4 mg/dL (8.5-10.1); Potassium 4.4 mmol/L (3.5-5.1)
[2020-04-19 20:19] LABS: Urine WBC None Seen /hpf (0 - 3)
[2020-04-19] MEDS ORDERED: diphenhdrAMINE HCL 25 MG CAP PO ONE (20:45)
[2020-04-19 20:56] LABS: Urine Bacteria NONE SEEN /hpf (None Seen); Urine Blood Negative /uL (Negative); Urine Specific Gravity 1.006 (1.001-1.035)
[2020-04-19] MEDS: ATORVASTATIN 20 MG TAB PO SCH (22:07)
[2020-04-20] VITALS (13 sets, daily range): BP systolic 98–156; BP diastolic 27–60
[2020-04-20] MEDS: ACCU-CHEK COMFORT CURVE STRIP VI SCH ×4 (00:02→11:51)
[2020-04-20] MEDS: SODIUM CHLORIDE 0.9% 1,000 ML IV SCH (02:06)
[2020-04-20 03:53] LABS: Calcium 8.1 mg/dL (8.5-10.1); Potassium 4.6 mmol/L (3.5-5.1)
[2020-04-20] MEDS: InsuLIN REG 1unit/0.01ml Soln (100units/ml) SC SCH ×4 (04:18→11:57)
[2020-04-20] MEDS: CLINDAMYCIN 600MG IV 50 ML IV SCH (06:13)
[2020-04-20 08:52] LABS: Basophils # (auto) 0 10 ^3/uL (0-0.2); Basophils % (auto) 0.6 % (0.0-2.0); Eosinophils # (auto) 0.2 10 ^3/uL (0-0.8); Eosinophils % (auto) 2.5 % (0.0-7.0); Hematocrit 29.4 % (41.0-53.0); Hemoglobin 10.3 g/dL (13.5-17.5); Lymphocytes # (auto) 1.9 10 ^3/uL (0.4-5.4); Lymphocytes % (auto) 26.5 % (10.0-50.0); Mean Corpuscular Hemoglobin 28.8 pg (28.0-32.0); Mean Corpuscular Hgb Conc. 35.2 g/dL (32.0-36.0); Mean Corpuscular Volume 81.9 fL (80.0-100.0); Monocytes # (auto) 0.7 10 ^3/uL (0-1.3); Monocytes % (auto) 9.6 % (0.0-12.0); Neutrophils # (auto) 4.3 10 ^3/uL (1.6-8.6); Neutrophils % (auto) 60.8 % (37.0-80.0); Platelet Count (auto) 319 10^3/uL (140-450); Red Blood Cells 3.58 10^6/uL (4.5-5.90); Red Cell Distribution Width 14.5 % (11.8-14.3); White Blood Cell 7.1 10^3/uL (4.4-10.8)
[2020-04-20 09:07] LABS: Calcium 8.9 mg/dL (8.5-10.1); Potassium 4.5 mmol/L (3.5-5.1)
[2020-04-20 09:09] LABS: BUN/Creatinine Ratio 17.9
[2020-04-20 09:18] LABS: Phosphorus 3.6 mg/dL (2.5-4.90); Uric Acid 6.8 mg/dL (3.5-7.2)
[2020-04-20] MEDS: ASPirin 81 mg TAB PO SCH (09:53)
[2020-04-20] MEDS: FUROSEMIDE 40 MG TAB PO SCH (09:53)
[2020-04-20] MEDS: TICAGRELOR 90 MG TAB PO SCH (09:54)
[2020-04-20] MEDS: DOCUSATE SOD 100 MG CAP PO SCH (09:54)
[2020-04-20] MEDS: LISINOPRIL 10 MG TAB PO SCH (09:54)
[2020-04-20] MEDS: ENOXAPARIN SOD 40 MG/0.4 ML SYRINGE SC SCH (09:54)
[2020-04-20] MEDS ORDERED: CLIN300C8 PO (11:57)
[2020-04-20] MEDS ORDERED: INSLANTI SC (11:57)
[2020-04-20] MEDS ORDERED: TICA90TA PO (11:57)
[2020-04-20] MEDS ORDERED: LISI-648 PO (11:57)
== END 2020-04-20 13:10 | disposition home health service (06) | DRG 603 ==
LOC: ER 09:45 → OVERFLOW 09:46 → ICU WEST 14:11
PROVIDERS: ADMIT Internal Medicine; ATTEND Internal Medicine
DX: L03.115 Cellulitis of right lower limb (principal); E87.1 Hypo-osmolality and hyponatremia; I50.9 Heart failure, unspecified; E78.5 Hyperlipidemia, unspecified; E66.9 Obesity, unspecified; Z68.30 Body mass index [BMI] 30.0-30.9, adult; E11.51 Type 2 diabetes mellitus with diabetic peripheral angiopathy without gangrene; E11.649 Type 2 diabetes mellitus with hypoglycemia without coma; E11.65 Type 2 diabetes mellitus with hyperglycemia; I11.0 Hypertensive heart disease with heart failure; I25.10 Atherosclerotic heart disease of native coronary artery without angina pectoris; I87.2 Venous insufficiency (chronic) (peripheral); K59.00 Constipation, unspecified; S80.821A Blister (nonthermal), right lower leg, initial encounter; W18.39XA Other fall on same level, initial encounter; L03.116 Cellulitis of left lower limb; Z79.02 Long term (current) use of antithrombotics/antiplatelets; Z82.49 Family history of ischemic heart disease and other diseases of the circulatory system; Z82.5 Family history of asthma and other chronic lower respiratory diseases; Z95.1 Presence of aortocoronary bypass graft; Z83.3 Family history of diabetes mellitus; Z95.5 Presence of coronary angioplasty implant and graft; Y93.89 Activity, other specified; Y92.89 Other specified places as the place of occurrence of the external cause; Y99.8 Other external cause status
CPT/HCPCS: 36415; 70450; 71045; 80048; 80053; 80307; 81001; 82533; 82570; 82962; 83036; 83880; 83935; 84100; 84133; 84156; 84295; 84300; 84443; 84484; 84550; 85025; 85610; 85730; 87081; 93005; 93970; 96365; 96367; 96375; 97110; 97116; 97163; 97530; G0378; J0696; J1815; J1956; J3490

== ENCOUNTER 2023-03-29 13:12 | Emergency (ER) | payer OTHER, MEDICAID ==
[~2023-03-29] VITALS: Ht 180.3 cm; Wt 108.2 kg
[~2023-03-29 13:12] MED LIST changes: +ACET-1881 PO; -AMLO-496 PO; +CLIN300C70 PO; +CLOP75TA70 PO; +DILT-15 PO; -LISI-648 PO; +LISI10TA34 PO; -TICA90TA PO
[2023-03-29] MEDS: HYDROcodone-ACET 10/325MG TAB PO ONE (15:52)
[2023-03-29 15:57] LABS: Basophils # (auto) 0.1 10 ^3/uL (0-0.2); Basophils % (auto) 0.9 % (0.0-2.0); Eosinophils # (auto) 0.2 10 ^3/uL (0-0.8); Eosinophils % (auto) 2.1 % (0.0-7.0); Hematocrit 40.1 % (41.0-53.0); Hemoglobin 13.5 g/dL (13.5-17.5); Lymphocytes # (auto) 2.5 10 ^3/uL (0.4-5.4); Lymphocytes % (auto) 24.6 % (10.0-50.0); Mean Corpuscular Hemoglobin 29.7 pg (28.0-32.0); Mean Corpuscular Hgb Conc. 33.6 g/dL (32.0-36.0); Mean Corpuscular Volume 88.2 fL (80.0-100.0); Monocytes # (auto) 0.8 10 ^3/uL (0-1.3); Monocytes % (auto) 7.7 % (0.0-12.0); Neutrophils # (auto) 6.6 10 ^3/uL (1.6-8.6); Neutrophils % (auto) 64.7 % (37.0-80.0); Nucleated Red Blood Cells % 0.1 %; Red Blood Cells 4.54 10^6/uL (4.5-5.90); Red Cell Distribution Width 14.3 % (11.8-14.3); White Blood Cell 10.2 10^3/uL (4.4-10.8)
[2023-03-29 16:17] LABS: Alanine Aminotransferase 17 U/L (7-40); Albumin 4.1 g/dL (3.2-4.8); Alkaline Phosphatase 118 U/L (46-116); Anion Gap 6 (5-15); Aspartate Aminotransferase 19 U/L (13-40); BUN/Creatinine Ratio 21.9 (10.0-20.0); Blood Urea Nitrogen 28 mg/dL (9-23); Calcium 9.6 mg/dL (8.7-10.4); Carbon Dioxide 27 mmol/L (20-30); Chloride 106 mmol/L (98-107); Glucose 177 mg/dL (74-106); Potassium 4.6 mmol/L (3.5-5.1); Sodium 139 mmol/L (136-145)
[2023-03-29 16:18] LABS: Bilirubin, Total 0.6 mg/dL (0.2-1.0); Total Protein 6.3 g/dL (5.7-8.2)
[2023-03-29] MEDS: PIPERACILLIN-TAZOB 3.375GM 100 ML IV ONE (16:40)
[2023-03-29] MEDS: CLINDAMYCIN 600MG IV 50 ML IV ONE (16:40)
[2023-03-29] MEDS ORDERED: CLIN300C70 PO (17:29)
[2023-03-29] MEDS ORDERED: AMOX500T3 PO (17:29)
[2023-03-29 21:28] VITALS: BP 115/56; PULSE 63; RESP 16; TEMP 98.2; O2SAT 97
== END 2023-03-29 21:32 | disposition home or self-care (01) ==
LOC: ER 13:12
DX: L03.115 Cellulitis of right lower limb (principal); L03.116 Cellulitis of left lower limb; I73.9 Peripheral vascular disease, unspecified; R07.89 Other chest pain; I10 Essential (primary) hypertension; E11.9 Type 2 diabetes mellitus without complications; E78.5 Hyperlipidemia, unspecified; Z95.1 Presence of aortocoronary bypass graft; Z79.2 Long term (current) use of antibiotics; Z79.82 Long term (current) use of aspirin; Z79.4 Long term (current) use of insulin; Z79.899 Other long term (current) drug therapy
CPT/HCPCS: 36415; 71045; 80053; 84484; 85025; 93925; 96365; 96366; 96368; 99285; J2543; J3490

== ENCOUNTER 2024-04-22 11:41 | Emergency (ER) | payer OTHER, MEDICAID ==
[~2024-04-22] VITALS: Ht 180.3 cm; Wt 100.7 kg
[~2024-04-22 11:41] MED LIST changes: +AMOX500T3 PO; +CLIN1CAP70 PO; -CLIN300C70 PO
[2024-04-22 11:53] VITALS: BP 128/69; PULSE 98; RESP 18; O2SAT 98
== END 2024-04-22 13:13 | disposition left against medical advice (07) ==
LOC: ER 11:41
DX: M79.671 Pain in right foot (principal); M79.672 Pain in left foot; Z53.21 Procedure and treatment not carried out due to patient leaving prior to being seen by health care provider; Z79.899 Other long term (current) drug therapy
CPT/HCPCS: 82947; 82962

== ENCOUNTER 2024-04-29 10:46 | Emergency (ER) | payer OTHER, MEDICAID ==
[~2024-04-29] VITALS: Ht 180.3 cm; Wt 98.7 kg
[2024-04-29 11:10] VITALS: BP 135/42; PULSE 72; RESP 20; TEMP 97.8; O2SAT 98
== END 2024-04-29 11:15 | disposition left against medical advice (07) ==
LOC: ER 10:46
DX: H53.149 Visual discomfort, unspecified (principal); Z53.21 Procedure and treatment not carried out due to patient leaving prior to being seen by health care provider